=== PATIENT | male | born 1980 | race Caucasian/White ===

== ENCOUNTER 2017-06-25 21:39 | Emergency (ER) | payer OTHER ==
[2017-06-25 22:23] VITALS: BP 110/77; PULSE 84; TEMP 98; BMI 25.7
--- NOTE | 2017-06-25 22:35 | PDOC ---
History of Present Illness - General Chief Complaint: Pain Stated Complaint: RT ELBOW PAIN Time Seen by Provider: 06/25/17 22:25 History Source: Patient Exam Limitations: No Limitations - History of Present Illness Initial Comments: 06/25/17 22:33 36-year-old male presents the ED with complaints of right elbow pain. Patient states was ripping up a box at work when his elbow struck the wall causing him discomfort to the area. Patient states has difficulty bending the elbow but denies recent injury to the affected area or radiation of pain. Patient took nothing for the pain and came to the ER for further evaluation. Timing/Duration: 1 hour Severity: mild Associated Symptoms: reports: denies symptoms Past History - Travel Traveled outside of the country in the last 30 days: No - Past Medical History Allergies/Adverse Reactions: Allergies Allergy/AdvReac Type Severity Reaction Status Date / Time No Known Allergies Allergy Verified 06/25/17 22:20 Home Medications: Ambulatory Orders NK [No Known Home Medication] 06/25/17 COPD: No - Suicide/Smoking/Psychosocial Hx Smoking History: Never smoked Have you smoked in the past 12 months: No Information on smoking cessation initiated: No Hx Alcohol Use: No Drug/Substance Use Hx: No Patient Lives Alone: No Lives with/in: spouse/SO Review of Systems - Review of Systems Able to Perform ROS?: Yes Musculoskeletal: Yes: Joint Pain (right elbow) Integumentary: No: Symptoms Reported Neurological: No: Symptoms reported *Physical Exam - Vital Signs Last Vital Signs Temp Pulse Resp BP Pulse Ox 98 F 84 20 110/77 97 06/25/17 22:20 06/25/17 22:20 06/25/17 22:20 06/25/17 22:20 06/25/17 22:20 - Physical Exam General Appearance: Yes: Nourished, Appropriately Dressed. No: Apparent Distress Extremity: positive: Normal Capillary Refill, Normal Inspection, Tender (over the rt epicondyle notch. no crepitus or deformity). negative: Normal Range of Motion (unable to fully flex at right elbow) Integumentary: positive: Normal Color, Warm, Moist Neurologic: positive: Motor Strength 5/5 (right hand grasp) ED Treatment Course - RADIOLOGY Radiology Studies Ordered: Category Date Time Status ELBOW-RIGHT [RAD] Stat Radiology 06/25/17 22:25 Ordered Medical Decision Making - Medical Decision Making 06/25/17 22:35 Patient with injury to right elbow. Patient Had tenderness to the right epicondylar notch. Patient ordered for x-ray. *DC/Admit/Observation/Transfer Diagnosis at time of Disposition: Elbow contusion Qualifiers: Encounter type: initial encounter Laterality: right Qualified Code(s): S50.01XA - Contusion of right elbow, initial encounter - Discharge Dispostion Disposition: HOME Condition at time of disposition: Good - Referrals - Patient Instructions Printed Discharge Instructions: DI for Contusion Additional Instructions: Please take Motrin 600 mg to discomfort. Please apply ice to the affected area as much as he can tolerate for the next 2 days. - Post Discharge Activity
== END 2017-06-25 22:43 | disposition home or self-care (01) ==
LOC: JERFT 21:39
DX: S50.01XA Contusion of right elbow, initial encounter (principal); W22.8XXA Striking against or struck by other objects, initial encounter; Y93.89 Activity, other specified; Y92.69 Other specified industrial and construction area as the place of occurrence of the external cause; Y99.0 Civilian activity done for income or pay
CPT/HCPCS: 73070-TC-RT-FY; 99281-25

== ENCOUNTER 2017-06-28 14:11 | Emergency (ER) | payer OTHER ==
[2017-06-28 14:34] VITALS: BP 115/62; PULSE 91; TEMP 98; BMI 25.7
[2017-06-28] MEDS ORDERED: NAPROXEN 500 MG TABLET (FP) PO ONE (16:12)
--- NOTE | 2017-06-28 16:14 | PDOC ---
History of Present Illness - General Chief Complaint: Injury Stated Complaint: REVISIT FOR ARM INJURY Time Seen by Provider: 06/28/17 15:39 History Source: Patient Exam Limitations: No Limitations - History of Present Illness Initial Comments: 06/28/17 16:15 This is a 36-year-old male without significant past medical history who comes to the ER today for reevaluation of right elbow pain sustained 06/25. Patient states on that day he was at work when he pulled some stuck case and struck his right elbow on the corner of a drywall wall. Patient seen and evaluated on today with negative x-rays at that time. Patient returns today seeking clearance to return to work. Levels unchanged but patient has not been taking Tylenol or Motrin as directed. Past History - Past Medical History Allergies/Adverse Reactions: Allergies Allergy/AdvReac Type Severity Reaction Status Date / Time No Known Allergies Allergy Verified 06/28/17 14:30 Home Medications: Ambulatory Orders NK [No Known Home Medication] 06/25/17 COPD: No Other medical history: denies. - Suicide/Smoking/Psychosocial Hx Smoking History: Current every day smoker Have you smoked in the past 12 months: Yes Number of Cigarettes Smoked Daily: 4 Information on smoking cessation initiated: No Hx Alcohol Use: No Drug/Substance Use Hx: No Review of Systems - Review of Systems Able to Perform ROS?: Yes Is the patient limited Pashto proficient: No Constitutional: No: Symptoms Reported HEENTM: No: Symptoms Reported Respiratory: No: Symptoms reported Cardiac (ROS): No: Symptoms Reported ABD/GI: No: Symptoms Reported : No: Symptoms Reported Musculoskeletal: Yes: See HPI Integumentary: No: Symptoms Reported Neurological: No: Symptoms reported *Physical Exam - Vital Signs Last Vital Signs Temp Pulse Resp BP Pulse Ox 98 F 91 H 19 115/62 96 06/28/17 14:31 06/28/17 14:31 06/28/17 14:31 06/28/17 14:31 06/28/17 14:31 - Physical Exam General Appearance: Yes: Appropriately Dressed. No: Apparent Distress Musculoskeletal: positive: Normal Inspection. negative: CVA Tenderness Extremity: positive: Normal Capillary Refill, Normal Inspection, Normal Range of Motion, Other (Strength 3/5 in right upper extremity. 5/5 in left upper extremity.) Integumentary: positive: Normal Color, Dry, Warm Neurologic: positive: Fully Oriented, Alert, Normal Response Medical Decision Making - Medical Decision Making 06/28/17 16:17 A/P: 36-year-old male without medical history with continued right elbow pain. Full range of motion against resistance. 3/5 strength on flexion/extension of right elbow. No bony deformity palpated to right elbow. No swelling noted to right elbow Patient given referral to Dr. Chaparro and Dr. Woodson for reevaluation I will discharge home *DC/Admit/Observation/Transfer Diagnosis at time of Disposition: Elbow contusion Qualifiers: Encounter type: subsequent encounter Laterality: right Qualified Code(s): S50.01XD - Contusion of right elbow, subsequent encounter - Discharge Dispostion Disposition: HOME Condition at time of disposition: Stable Admit: No - Referrals Referrals: Leonel Chaparro MD [Staff Physician] - Colin Woodson MD [Staff Physician] - - Patient Instructions Additional Instructions: Make an appointment with Dr. Woodson the orthopedist at the phone number has been provided. Call Dr. Chaparro for an appointment at the phone number provided. Take Tylenol or Motrin as needed for fevers or pain. Follow manufacturers instructions for appropriate dosage. Return to emergency room for worsening pain, inability to move arm, or any other concerns. - Post Discharge Activity
[2017-06-28] MEDS ORDERED: NAPROXEN 500 MG TABLET (FP) ONE (16:15)
== END 2017-06-28 16:21 | disposition home or self-care (01) ==
LOC: JERFT 14:11
DX: S50.01XD Contusion of right elbow, subsequent encounter (principal); X58.XXXD Exposure to other specified factors, subsequent encounter; Y93.9 Activity, unspecified; Y92.9 Unspecified place or not applicable; F17.210 Nicotine dependence, cigarettes, uncomplicated
CPT/HCPCS: 99281-25